=== PATIENT | female | born 1950 | race Two or more races ===

== ENCOUNTER 2017-09-22 14:07 | Outpatient (CLI) | payer OTHER ==
[~2017-09-22 14:07] MED LIST: ALEGRA; PREMARIN0.45 MG PO; PREVACID15 MG PO
== END 2017-09-22 14:45 | disposition home or self-care (01) ==
LOC: MAMO-SONO 14:07
DX: Z12.31 Encounter for screening mammogram for malignant neoplasm of breast (principal); Z87.898 Personal history of other specified conditions; E04.1 Nontoxic single thyroid nodule

== ENCOUNTER 2017-10-29 08:53 | Outpatient (CLI) | payer OTHER | END 2017-10-29 16:38 | disposition home or self-care (01) | LOC: SONOGRAMA 08:53 | DX: E04.1 Nontoxic single thyroid nodule (principal) ==

== ENCOUNTER 2017-11-16 14:45 | Outpatient (CLI) | payer OTHER | END 2017-11-16 15:00 | disposition home or self-care (01) | LOC: RAD 14:45 | DX: M54.5 Low back pain (principal); M25.551 Pain in right hip; M25.552 Pain in left hip ==

== ENCOUNTER 2018-01-29 15:36 | Emergency (ER) | payer OTHER ==
[~2018-01-29] VITALS: Ht 157.5 cm; Wt 76.2 kg
== END 2018-01-29 21:02 | disposition home or self-care (01) ==
LOC: ER 15:36
DX: M94.0 Chondrocostal junction syndrome [Tietze] (principal); G44.209 Tension-type headache, unspecified, not intractable; R07.89 Other chest pain

== ENCOUNTER → 2018-06-01 | Outpatient (CLI) | payer OTHER | END | disposition home or self-care (01) | LOC: RAD 14:26 → TOM 14:45 | DX: D86.0 Sarcoidosis of lung (principal); D86.86 Sarcoid arthropathy; I34.0 Nonrheumatic mitral (valve) insufficiency; E55.9 Vitamin D deficiency, unspecified; E66.8 Other obesity; Z68.33 Body mass index [BMI] 33.0-33.9, adult; E04.0 Nontoxic diffuse goiter; K21.0 Gastro-esophageal reflux disease with esophagitis; Z86.010 Personal history of colon polyps; K29.60 Other gastritis without bleeding; D50.8 Other iron deficiency anemias; R07.89 Other chest pain ==

== ENCOUNTER 2018-06-23 13:49 | Outpatient (CLI) | payer OTHER | END 2018-06-23 14:03 | disposition home or self-care (01) | LOC: NUCLEAR 13:49 | DX: M81.0 Age-related osteoporosis without current pathological fracture (principal); Z13.820 Encounter for screening for osteoporosis ==

== ENCOUNTER 2018-12-09 13:29 | Outpatient (CLI) | payer OTHER | END 2018-12-09 13:33 | disposition home or self-care (01) | LOC: MAMO-SONO 13:29 | DX: Z12.31 Encounter for screening mammogram for malignant neoplasm of breast (principal); Z87.898 Personal history of other specified conditions; N64.89 Other specified disorders of breast; E04.1 Nontoxic single thyroid nodule ==

== ENCOUNTER → 2018-12-27 17:28 | Outpatient (CLI) | payer OTHER | END | disposition home or self-care (01) | LOC: RAD 17:28 | DX: S60.222A Contusion of left hand, initial encounter (principal) ==

== ENCOUNTER 2019-01-13 10:06 | Outpatient (CLI) | payer OTHER | END 2019-01-13 17:17 | disposition home or self-care (01) | LOC: RAD 10:06 | DX: M79.642 Pain in left hand (principal) ==

== ENCOUNTER 2019-01-21 13:18 | Outpatient (CLI) | payer OTHER | END 2019-01-21 13:24 | disposition home or self-care (01) | LOC: MRI 13:18 | DX: M25.532 Pain in left wrist (principal) | CPT/HCPCS: 73221 ==

== ENCOUNTER 2019-02-01 14:31 | Outpatient (CLI) | payer OTHER | END 2019-02-01 14:36 | disposition home or self-care (01) | LOC: RAD 14:31 | DX: M79.642 Pain in left hand (principal) ==

== ENCOUNTER 2019-03-23 13:44 | Outpatient (CLI) | payer OTHER | END 2019-03-23 17:01 | disposition home or self-care (01) | LOC: RAD 13:44 | DX: S62.347D Nondisplaced fracture of base of fifth metacarpal bone, left hand, subsequent encounter for fracture with routine healing (principal); M15.0 Primary generalized (osteo)arthritis; M54.5 Low back pain ==

== ENCOUNTER 2019-07-16 14:15 | Emergency (ER) | payer OTHER ==
[~2019-07-16] VITALS: Ht 157.5 cm; Wt 77.1 kg
== END 2019-07-16 19:04 | disposition home or self-care (01) ==
LOC: ER 14:15
DX: K29.70 Gastritis, unspecified, without bleeding (principal); R07.89 Other chest pain; D86.0 Sarcoidosis of lung; R10.13 Epigastric pain; K29.80 Duodenitis without bleeding

== ENCOUNTER → 2019-09-06 | Outpatient (CLI) | payer OTHER | END | disposition home or self-care (01) | LOC: TOM 13:38 | DX: M15.0 Primary generalized (osteo)arthritis (principal); D86.0 Sarcoidosis of lung; E04.1 Nontoxic single thyroid nodule ==

== ENCOUNTER 2020-01-08 20:07 | Emergency (ER) | payer OTHER ==
[~2020-01-08] VITALS: Ht 157.5 cm; Wt 77.1 kg
== END 2020-01-08 23:52 | disposition home or self-care (01) ==
LOC: ER 20:07
DX: K57.90 Diverticulosis of intestine, part unspecified, without perforation or abscess without bleeding (principal); R91.1 Solitary pulmonary nodule

== ENCOUNTER 2020-08-24 07:59 | Outpatient (CLI) | payer OTHER | END 2020-08-24 10:30 | disposition home or self-care (01) | LOC: MRI 07:59 | PROVIDERS: ATTEND Internal Medicine | DX: M54.00 Panniculitis affecting regions of neck and back, site unspecified (principal); M54.5 Low back pain; M15.0 Primary generalized (osteo)arthritis; R10.84 Generalized abdominal pain; R10.30 Lower abdominal pain, unspecified | CPT/HCPCS: 72195; 74181 ==

== ENCOUNTER → 2021-01-02 11:02 | Outpatient (CLI) | payer OTHER ==
[~2021-01-02 11:02] MED LIST changes: +DICYCLOMINE HCL20 MG; +FAMOTIDINE20 MG; +LEVALBUTEROL TA15 GM; +PANADOL EXTRA500 MG PO; +PANTOPRAZOLE SO40 MG; +PREDNISONE20 M1; +SYMBICORT 16010.2 GM
== END | disposition home or self-care (01) ==
LOC: LAB 11:02
PROVIDERS: ATTEND Internal Medicine
DX: D61.818 Other pancytopenia (principal); M85.89 Other specified disorders of bone density and structure, multiple sites; D55.0 Anemia due to glucose-6-phosphate dehydrogenase [G6PD] deficiency; E03.1 Congenital hypothyroidism without goiter; M06.4 Inflammatory polyarthropathy

== ENCOUNTER → 2021-01-07 13:21 | Outpatient (CLI) | payer OTHER | END | disposition home or self-care (01) | LOC: LAB 13:21 | PROVIDERS: ATTEND Internal Medicine | DX: D61.818 Other pancytopenia (principal); D86.0 Sarcoidosis of lung; M06.4 Inflammatory polyarthropathy; D51.8 Other vitamin B12 deficiency anemias; D89.89 Other specified disorders involving the immune mechanism, not elsewhere classified; M05.80 Other rheumatoid arthritis with rheumatoid factor of unspecified site; M32.10 Systemic lupus erythematosus, organ or system involvement unspecified; D59.10 Autoimmune hemolytic anemia, unspecified; D89.1 Cryoglobulinemia ==

== ENCOUNTER 2021-01-14 10:24 | Outpatient (CLI) | payer OTHER ==
[~2021-01-14 10:24] MED LIST changes: -DICYCLOMINE HCL20 MG; -FAMOTIDINE20 MG; -LEVALBUTEROL TA15 GM; -PANADOL EXTRA500 MG PO; -PANTOPRAZOLE SO40 MG; -PREDNISONE20 M1; -SYMBICORT 16010.2 GM
== END 2021-01-14 10:30 | disposition home or self-care (01) ==
LOC: LAB 10:24
PROVIDERS: ATTEND Internal Medicine Hematology & Oncology
DX: D61.810 Antineoplastic chemotherapy induced pancytopenia (principal); D89.1 Cryoglobulinemia; C88.8 Other malignant immunoproliferative diseases; D80.8 Other immunodeficiencies with predominantly antibody defects

== ENCOUNTER 2021-01-16 08:43 | Inpatient (IN) | payer OTHER ==
[~2021-01-16] VITALS: Ht 157.5 cm; Wt 78.5 kg
[2021-01-17] MEDS ORDERED: LEVALBUTEROL TA15 GM (08:00)
[2021-01-17] MEDS ORDERED: SYMBICORT 16010.2 GM (08:00)
[2021-01-17] MEDS ORDERED: FAMOTIDINE20 MG (08:00)
[2021-01-17] MEDS ORDERED: DICYCLOMINE HCL20 MG (08:01)
[2021-01-17] MEDS ORDERED: PANADOL EXTRA500 MG PO (08:02)
== END 2021-01-27 09:45 | disposition home or self-care (01) | DRG 810 ==
LOC: MEDI 08:43
PROVIDERS: ADMIT Internal Medicine; ATTEND Internal Medicine
PROC: 07DR3ZX Extraction of Iliac Bone Marrow, Percutaneous Approach, Diagnostic (ICD-10-PCS; 2021-01-16)
PROC: 8E0ZXY6 Isolation (ICD-10-PCS; 2021-01-19)
PROC: 30233N1 Transfusion of Nonautologous Red Blood Cells into Peripheral Vein, Percutaneous Approach (ICD-10-PCS; principal; 2021-01-21)
PROC: 30243R1 Transfusion of Nonautologous Platelets into Central Vein, Percutaneous Approach (ICD-10-PCS; 2021-01-22)
PROC: 05H533Z Insertion of Infusion Device into Right Subclavian Vein, Percutaneous Approach (ICD-10-PCS; 2021-01-24)
DX: D61.818 Other pancytopenia (principal); J44.9 Chronic obstructive pulmonary disease, unspecified; D61.1 Drug-induced aplastic anemia; M32.0 Drug-induced systemic lupus erythematosus; E09.65 Drug or chemical induced diabetes mellitus with hyperglycemia; T50.B95A Adverse effect of other viral vaccines, initial encounter; D46.21 Refractory anemia with excess of blasts 1; T50.905A Adverse effect of unspecified drugs, medicaments and biological substances, initial encounter; D86.0 Sarcoidosis of lung; D46.A Refractory cytopenia with multilineage dysplasia

== ENCOUNTER 2021-01-29 10:24 | Inpatient (IN) | payer OTHER ==
[~2021-01-29] VITALS: Ht 157.5 cm; Wt 78.0 kg
[~2021-01-29 10:24] MED LIST changes: +DICYCLOMINE HCL20 MG; +FAMOTIDINE20 MG; +LEVALBUTEROL TA15 GM; +PANADOL EXTRA500 MG PO; +SYMBICORT 16010.2 GM
[2021-01-30] MEDS ORDERED: PANTOPRAZOLE SO40 MG (08:09)
[2021-01-30] MEDS ORDERED: PREDNISONE20 M1 (08:09)
== END 2021-02-21 21:22 | disposition home or self-care (01) | DRG 813 ==
LOC: MEDI 10:24 → SURG 01-31 12:57 → MEDI 02-01 13:05
PROVIDERS: ADMIT Internal Medicine; ATTEND Internal Medicine
PROC: 30233R1 Transfusion of Nonautologous Platelets into Peripheral Vein, Percutaneous Approach (ICD-10-PCS; principal; 2021-01-29)
PROC: 8E0ZXY6 Isolation (ICD-10-PCS; 2021-01-29)
PROC: 30233N1 Transfusion of Nonautologous Red Blood Cells into Peripheral Vein, Percutaneous Approach (ICD-10-PCS; 2021-02-17)
DX: D69.59 Other secondary thrombocytopenia (principal); D46.B Refractory cytopenia with multilineage dysplasia and ring sideroblasts; D69.3 Immune thrombocytopenic purpura; J44.9 Chronic obstructive pulmonary disease, unspecified; M32.0 Drug-induced systemic lupus erythematosus; T45.1X5A Adverse effect of antineoplastic and immunosuppressive drugs, initial encounter; D86.0 Sarcoidosis of lung

== ENCOUNTER 2021-03-01 10:05 | Outpatient (CLI) | payer OTHER ==
[~2021-03-01 10:05] MED LIST changes: +PANTOPRAZOLE SO40 MG; +PREDNISONE20 M1
== END 2021-03-01 15:02 | disposition home or self-care (01) ==
LOC: LAB 10:05
PROVIDERS: ATTEND Internal Medicine Hematology & Oncology
DX: D64.89 Other specified anemias (principal); D70.8 Other neutropenia; D69.49 Other primary thrombocytopenia

== ENCOUNTER 2021-03-04 08:50 | Outpatient (CLI) | payer OTHER | END 2021-03-04 15:00 | disposition home or self-care (01) | LOC: LAB 08:50 | PROVIDERS: ATTEND Internal Medicine Hematology & Oncology | DX: D70.8 Other neutropenia (principal); D64.89 Other specified anemias; D69.6 Thrombocytopenia, unspecified ==

== ENCOUNTER 2021-03-08 09:32 | Outpatient (CLI) | payer OTHER | END 2021-03-08 09:34 | disposition home or self-care (01) | LOC: LAB 09:32 | PROVIDERS: ATTEND Internal Medicine Hematology & Oncology | DX: D70.8 Other neutropenia (principal); D64.89 Other specified anemias; D69.6 Thrombocytopenia, unspecified; D69.49 Other primary thrombocytopenia ==

== ENCOUNTER 2021-03-12 07:37 | Outpatient (CLI) | payer OTHER | END 2021-03-12 07:38 | disposition home or self-care (01) | LOC: LAB 07:37 | PROVIDERS: ATTEND Internal Medicine | DX: D69.49 Other primary thrombocytopenia (principal); D70.8 Other neutropenia; D64.89 Other specified anemias ==

== ENCOUNTER 2021-03-13 15:18 | Inpatient (IN) | payer OTHER ==
[~2021-03-13] VITALS: Ht 157.5 cm; Wt 77.1 kg
[2021-03-14] MEDS ORDERED: OLANZAPINE2.5 MG (08:43)
[2021-03-14] MEDS ORDERED: LORAZEPAM1 MG (08:43)
[2021-03-14] MEDS ORDERED: PYRIDOXINE HCL100 MG (08:43)
[2021-03-14] MEDS ORDERED: LORAZEPAM0.5 MG (08:43)
[2021-03-14] MEDS ORDERED: CETIRIZINE HCL10 MG (08:43)
== END 2021-03-21 13:52 | disposition home or self-care (01) | DRG 813 ==
LOC: MEDI 15:18
PROVIDERS: ADMIT Internal Medicine; ATTEND Internal Medicine
PROC: 3E0F7SF Introduction of Other Gas into Respiratory Tract, Via Natural or Artificial Opening (ICD-10-PCS; 2021-03-13)
PROC: 30243R1 Transfusion of Nonautologous Platelets into Central Vein, Percutaneous Approach (ICD-10-PCS; principal; 2021-03-14)
PROC: 30243N1 Transfusion of Nonautologous Red Blood Cells into Central Vein, Percutaneous Approach (ICD-10-PCS; 2021-03-14)
DX: D69.6 Thrombocytopenia, unspecified (principal); D64.9 Anemia, unspecified; D61.818 Other pancytopenia; E87.6 Hypokalemia; D86.0 Sarcoidosis of lung; E83.111 Hemochromatosis due to repeated red blood cell transfusions; Z92.21 Personal history of antineoplastic chemotherapy

== ENCOUNTER 2021-04-19 14:30 | Inpatient (IN) | payer OTHER ==
[~2021-04-19] VITALS: Ht 157.5 cm; Wt 77.1 kg
[~2021-04-19 14:30] MED LIST changes: +CETIRIZINE HCL10 MG; +LORAZEPAM0.5 MG; +LORAZEPAM1 MG; +OLANZAPINE2.5 MG; +PYRIDOXINE HCL100 MG
== END 2021-04-27 10:12 | disposition home or self-care (01) | DRG 813 ==
LOC: MEDI 14:30
PROVIDERS: ADMIT Internal Medicine; ATTEND Internal Medicine
PROC: 30243R1 Transfusion of Nonautologous Platelets into Central Vein, Percutaneous Approach (ICD-10-PCS; principal; 2021-04-20)
PROC: 30243N1 Transfusion of Nonautologous Red Blood Cells into Central Vein, Percutaneous Approach (ICD-10-PCS; 2021-04-20)
DX: D69.6 Thrombocytopenia, unspecified (principal); D61.810 Antineoplastic chemotherapy induced pancytopenia; D64.9 Anemia, unspecified

== ENCOUNTER 2021-05-24 08:20 | Outpatient (CLI) | payer OTHER | END 2021-05-24 08:41 | disposition home or self-care (01) | LOC: MRI 08:20 | PROVIDERS: ATTEND Internal Medicine | DX: E04.1 Nontoxic single thyroid nodule (principal); D13.6 Benign neoplasm of pancreas; R10.13 Epigastric pain | CPT/HCPCS: 74181 ==

== ENCOUNTER 2021-06-10 07:56 | Outpatient (CLI) | payer OTHER | END 2021-06-10 08:14 | disposition home or self-care (01) | LOC: SONOGRAMA 07:56 | PROVIDERS: ATTEND Pathology Anatomic Pathology & Clinical Pathology | DX: D34 Benign neoplasm of thyroid gland (principal); E04.8 Other specified nontoxic goiter ==

== ENCOUNTER 2021-07-17 12:27 | Inpatient (IN) | payer OTHER ==
[~2021-07-17] VITALS: Ht 157.5 cm; Wt 76.2 kg
== END 2021-07-23 15:07 | disposition home or self-care (01) | DRG 811 ==
LOC: MEDJ 12:27 → MEDI 12:27
PROVIDERS: Internal Medicine Hematology & Oncology; ADMIT Internal Medicine; ATTEND Internal Medicine
PROC: 30233P1 Transfusion of Nonautologous Frozen Red Cells into Peripheral Vein, Percutaneous Approach (ICD-10-PCS; 2021-07-18)
PROC: 07DR3ZX Extraction of Iliac Bone Marrow, Percutaneous Approach, Diagnostic (ICD-10-PCS; principal; 2021-07-18 18:00)
DX: D46.21 Refractory anemia with excess of blasts 1 (principal); D61.810 Antineoplastic chemotherapy induced pancytopenia; D61.1 Drug-induced aplastic anemia; D61.818 Other pancytopenia; D70.1 Agranulocytosis secondary to cancer chemotherapy; D46.A Refractory cytopenia with multilineage dysplasia; D86.0 Sarcoidosis of lung; D69.6 Thrombocytopenia, unspecified; K29.00 Acute gastritis without bleeding; K29.60 Other gastritis without bleeding; J44.9 Chronic obstructive pulmonary disease, unspecified; T45.1X5A Adverse effect of antineoplastic and immunosuppressive drugs, initial encounter; T38.0X5A Adverse effect of glucocorticoids and synthetic analogues, initial encounter; M94.0 Chondrocostal junction syndrome [Tietze]; M32.0 Drug-induced systemic lupus erythematosus; R10.13 Epigastric pain; R07.9 Chest pain, unspecified; E87.6 Hypokalemia; E09.9 Drug or chemical induced diabetes mellitus without complications; E83.111 Hemochromatosis due to repeated red blood cell transfusions; G44.209 Tension-type headache, unspecified, not intractable; Z92.21 Personal history of antineoplastic chemotherapy; Z20.822 Contact with and (suspected) exposure to COVID-19

== ENCOUNTER 2021-07-26 16:17 | Inpatient (IN) | payer OTHER ==
[~2021-07-26] VITALS: Ht 157.5 cm; Wt 76.2 kg
[2021-07-29] MEDS ORDERED: RAYOS5 MG (08:30)
== END 2021-07-30 10:09 | disposition home or self-care (01) | DRG 813 ==
LOC: MEDI 16:17
PROVIDERS: ADMIT Internal Medicine; ATTEND Internal Medicine
PROC: 05HY33Z Insertion of Infusion Device into Upper Vein, Percutaneous Approach (ICD-10-PCS; 2021-07-26)
PROC: 30233K1 Transfusion of Nonautologous Frozen Plasma into Peripheral Vein, Percutaneous Approach (ICD-10-PCS; principal; 2021-07-27)
DX: D69.6 Thrombocytopenia, unspecified (principal); D61.810 Antineoplastic chemotherapy induced pancytopenia; D64.9 Anemia, unspecified; D86.0 Sarcoidosis of lung; J44.9 Chronic obstructive pulmonary disease, unspecified; Z20.822 Contact with and (suspected) exposure to COVID-19; Z92.21 Personal history of antineoplastic chemotherapy

== ENCOUNTER 2021-08-05 19:04 | Inpatient (IN) | payer OTHER ==
[~2021-08-05] VITALS: Ht 61 cm; Wt 5.0 kg
[~2021-08-05 19:04] MED LIST changes: +RAYOS5 MG
== END 2021-08-11 10:40 | disposition home or self-care (01) | DRG 813 ==
LOC: MEDI 19:04
PROVIDERS: ADMIT Internal Medicine; ATTEND Internal Medicine
PROC: 30243R1 Transfusion of Nonautologous Platelets into Central Vein, Percutaneous Approach (ICD-10-PCS; principal; 2021-08-06)
DX: D69.6 Thrombocytopenia, unspecified (principal); C92.50 Acute myelomonocytic leukemia, not having achieved remission; E83.111 Hemochromatosis due to repeated red blood cell transfusions; D46.21 Refractory anemia with excess of blasts 1; D70.1 Agranulocytosis secondary to cancer chemotherapy; D86.0 Sarcoidosis of lung; Z92.21 Personal history of antineoplastic chemotherapy; Z20.822 Contact with and (suspected) exposure to COVID-19

== ENCOUNTER 2021-08-15 19:40 | Inpatient (IN) | payer OTHER ==
[~2021-08-15] VITALS: Ht 61 cm; Wt 5.0 kg
== END 2021-08-18 11:40 | disposition home or self-care (01) | DRG 835 ==
LOC: SURG-SUITE 19:40 → MEDI 19:40
PROVIDERS: ADMIT Internal Medicine; ATTEND Internal Medicine
PROC: 30233R1 Transfusion of Nonautologous Platelets into Peripheral Vein, Percutaneous Approach (ICD-10-PCS; principal; 2021-08-16)
DX: C92.50 Acute myelomonocytic leukemia, not having achieved remission (principal); D61.818 Other pancytopenia; D69.6 Thrombocytopenia, unspecified; D46.22 Refractory anemia with excess of blasts 2; D46.A Refractory cytopenia with multilineage dysplasia; Z92.21 Personal history of antineoplastic chemotherapy; Z20.822 Contact with and (suspected) exposure to COVID-19

== ENCOUNTER 2021-08-22 10:47 | Inpatient (IN) | payer OTHER ==
[~2021-08-22] VITALS: Ht 157.5 cm; Wt 76.2 kg
[2021-09-02] MEDS ORDERED: DAFLONEX-XL 11300 MG (08:19)
[2021-09-02] MEDS ORDERED: FOLIC ACID1 MG (08:19)
== END 2021-11-04 20:52 | disposition home or self-care (01) | DRG 834 ==
LOC: MEDI 10:47
PROVIDERS: ADMIT Internal Medicine; ATTEND Internal Medicine
PROC: 30233R1 Transfusion of Nonautologous Platelets into Peripheral Vein, Percutaneous Approach (ICD-10-PCS; principal; 2021-08-23)
PROC: 30233N1 Transfusion of Nonautologous Red Blood Cells into Peripheral Vein, Percutaneous Approach (ICD-10-PCS; 2021-08-24)
PROC: BW2FZZZ Computerized Tomography (CT Scan) of Neck (ICD-10-PCS; 2021-09-27)
DX: C92.50 Acute myelomonocytic leukemia, not having achieved remission (principal); D61.810 Antineoplastic chemotherapy induced pancytopenia; D69.3 Immune thrombocytopenic purpura; L03.811 Cellulitis of head [any part, except face]; D46.22 Refractory anemia with excess of blasts 2; D63.0 Anemia in neoplastic disease; T45.1X5A Adverse effect of antineoplastic and immunosuppressive drugs, initial encounter; K11.21 Acute sialoadenitis; K11.8 Other diseases of salivary glands; K29.60 Other gastritis without bleeding; M32.0 Drug-induced systemic lupus erythematosus; E83.111 Hemochromatosis due to repeated red blood cell transfusions; J44.9 Chronic obstructive pulmonary disease, unspecified; D86.0 Sarcoidosis of lung

== ENCOUNTER 2021-11-10 09:55 | Inpatient (IN) | payer OTHER ==
[~2021-11-10] VITALS: Ht 157.5 cm; Wt 69.4 kg
[~2021-11-10 09:55] MED LIST changes: +DAFLONEX-XL 11300 MG; +FOLIC ACID1 MG
[2021-11-11] MEDS ORDERED: PROMACTA50 MG (09:50)
== END 2021-11-13 08:55 | disposition home or self-care (01) | DRG 813 ==
LOC: MEDI 09:55
PROVIDERS: ADMIT Internal Medicine; ATTEND Internal Medicine
PROC: 30233R1 Transfusion of Nonautologous Platelets into Peripheral Vein, Percutaneous Approach (ICD-10-PCS; principal; 2021-11-10)
PROC: 02HV33Z Insertion of Infusion Device into Superior Vena Cava, Percutaneous Approach (ICD-10-PCS; 2021-11-10)
PROC: 8E0ZXY6 Isolation (ICD-10-PCS; 2021-11-10)
PROC: 30233N1 Transfusion of Nonautologous Red Blood Cells into Peripheral Vein, Percutaneous Approach (ICD-10-PCS; 2021-11-12)
DX: D69.3 Immune thrombocytopenic purpura (principal); D61.810 Antineoplastic chemotherapy induced pancytopenia; D46.22 Refractory anemia with excess of blasts 2; C92.50 Acute myelomonocytic leukemia, not having achieved remission; D69.49 Other primary thrombocytopenia; T45.1X5A Adverse effect of antineoplastic and immunosuppressive drugs, initial encounter; E83.111 Hemochromatosis due to repeated red blood cell transfusions; K05.10 Chronic gingivitis, plaque induced

== ENCOUNTER 2021-11-16 15:29 | Inpatient (IN) | payer OTHER ==
[~2021-11-16] VITALS: Ht 165.1 cm; Wt 63.5 kg
[~2021-11-16 15:29] MED LIST changes: +PROMACTA50 MG
== END 2021-11-17 09:52 | disposition home or self-care (01) | DRG 813 ==
LOC: SURH 15:29
PROVIDERS: ADMIT Internal Medicine; ATTEND Internal Medicine
PROC: 30233R1 Transfusion of Nonautologous Platelets into Peripheral Vein, Percutaneous Approach (ICD-10-PCS; principal; 2021-11-16)
PROC: 02HV33Z Insertion of Infusion Device into Superior Vena Cava, Percutaneous Approach (ICD-10-PCS; 2021-11-16)
DX: D69.3 Immune thrombocytopenic purpura (principal); D61.810 Antineoplastic chemotherapy induced pancytopenia; C92.50 Acute myelomonocytic leukemia, not having achieved remission; D69.49 Other primary thrombocytopenia; E83.111 Hemochromatosis due to repeated red blood cell transfusions; T45.1X5A Adverse effect of antineoplastic and immunosuppressive drugs, initial encounter; Z92.21 Personal history of antineoplastic chemotherapy

== ENCOUNTER 2021-11-21 21:43 | Inpatient (IN) | payer OTHER ==
[~2021-11-21] VITALS: Ht 157.5 cm; Wt 69.4 kg
[2021-11-22] MEDS ORDERED: VITAMIN E400 UNI5 (08:00)
[2021-11-22] MEDS ORDERED: B COMPLEX1 EACH (08:01)
== END 2021-11-22 16:41 | disposition home or self-care (01) | DRG 813 ==
LOC: SURH 21:43
PROVIDERS: ADMIT Internal Medicine; ATTEND Internal Medicine
PROC: 30243R1 Transfusion of Nonautologous Platelets into Central Vein, Percutaneous Approach (ICD-10-PCS; principal; 2021-11-22)
PROC: 02HV33Z Insertion of Infusion Device into Superior Vena Cava, Percutaneous Approach (ICD-10-PCS; 2021-11-22)
DX: D69.3 Immune thrombocytopenic purpura (principal); C92.50 Acute myelomonocytic leukemia, not having achieved remission; E83.111 Hemochromatosis due to repeated red blood cell transfusions; T45.1X5A Adverse effect of antineoplastic and immunosuppressive drugs, initial encounter; Z92.21 Personal history of antineoplastic chemotherapy